=== PATIENT | male | born 1965 | race Two or more races ===

== ENCOUNTER 2022-08-21 20:02 | Inpatient (IN) | payer OTHER ==
[2022-08-21 20:56] VITALS: BMI 21.9
[2022-08-21] MEDS ORDERED: MAGNESIUM HYDROX 2400MG/30ML ORAL SUSPENSION 30 ML CUP PO PRN (21:48)
[2022-08-21] MEDS ORDERED: DICYCLOMINE HCL 10 MG CAPSULE PO PRN (21:48)
[2022-08-21] MEDS ORDERED: LOPERAMIDE HCL 2 MG CAPSULE PO PRN (21:48)
[2022-08-21] MEDS ORDERED: ONDANSETRON *ODT* 4 MG TABLET SL PRN (21:48)
[2022-08-21] MEDS ORDERED: BISMUTH SUBSALICYLATE 524 MG/30 ML PO PRN (21:48)
[2022-08-21] MEDS ORDERED: METHOCARBAMOL 500 MG TABLET PO PRN (21:48)
[2022-08-21] MEDS ORDERED: POLYETHYLENE GLYCOL (HEALTHYLAX) 3350 17 GM PACKET PO PRN (21:48)
[2022-08-21] MEDS ORDERED: IBUPROFEN 600 MG TABLET (FP) PO PRN (21:48)
[2022-08-21] MEDS ORDERED: chlordiazePOXIDE HCL 25 MG CAPSULE PO PRN (21:48)
[2022-08-21] MEDS ORDERED: NALOXONE HCL (KLOXXADO) 8 MG SPRAY NS PRN (21:48)
[2022-08-21] MEDS ORDERED: BENZOCAINE/MENTHOL (CHLORASEPTIC ) LOZENGE MM PRN (21:48)
[2022-08-21] MEDS ORDERED: ACETAMINOPHEN 325 MG TABLET (FP) PO PRN ×2 (21:48)
[2022-08-21] MEDS ORDERED: IBUPROFEN 400 MG TABLET (FP) PO PRN (21:48)
[2022-08-21] MEDS ORDERED: MAG HYDROX/AL HYDROX/SIMETH 30 ML UNIT-DOSE CUP PO PRN (21:48)
[2022-08-21] MEDS: THIAMINE HCL 100 MG TABLET (FP) PO SCH (23:36)
[2022-08-21] MEDS: chlordiazePOXIDE HCL 25 MG CAPSULE PO SCH (23:36)
[2022-08-21] MEDS: MELATONIN 5 MG TABLETS PO SCH (23:46)
[2022-08-22] MEDS: chlordiazePOXIDE HCL 25 MG CAPSULE PO SCH ×4 (06:12→22:38)
[2022-08-22] MEDS ORDERED: PRENATAL VITAMINS W/ FOLIC ACID TABLET (FP) PO SCH (10:00)
[2022-08-22 11:28] LABS: HEMATOCRIT 32.3 % (35.4-49); MCH 35.6 pg (25.7-33.7); MEAN CELL VOLUME 104.7 fl (80-96); MEAN PLT VOLUME 10.3 fl (7.5-11.1); PLATELET COUNT 122 10^3/uL (134-434); RBC 3.09 M/mm3 (4.00-5.60); RDW 14.8 % (11.9-15.9); WHITE BLOOD COUNT 4.1 K/mm3 (4.0-10.0)
[2022-08-22 11:50] LABS: CALCIUM 9.1 mg/dL (8.5-10.1)
[2022-08-22 11:51] LABS: ALBUMIN 2.6 g/dl (3.4-5.0); BLOOD UREA NITROGEN 7.8 mg/dL (7-18)
[2022-08-22 11:54] LABS: CREATININE 0.5 mg/dL (0.55-1.3)
[2022-08-22 11:56] LABS: BILIRUBIN,TOTAL 1.6 mg/dL (0.2-1); TOT PROT 5.3 g/dl (6.4-8.2)
[2022-08-22] MEDS: THIAMINE HCL 100 MG TABLET (FP) PO SCH (22:37)
[2022-08-22] MEDS: MELATONIN 5 MG TABLETS PO SCH (22:37)
[2022-08-22 23:22] VITALS: RESP 18; TEMP 98.2
[2022-08-22 23:25] VITALS: BP 102/62; PULSE 119
[2022-08-23] MEDS ORDERED: chlordiazePOXIDE HCL 25 MG CAPSULE PO SCH (05:00)
[2022-08-24] MEDS ORDERED: chlordiazePOXIDE HCL 10 MG CAPSULE PO PRN
[2022-08-24] MEDS ORDERED: chlordiazePOXIDE HCL 10 MG CAPSULE PO SCH (05:00)
[2022-08-25] MEDS ORDERED: chlordiazePOXIDE HCL 10 MG CAPSULE PO SCH (05:00)
[2022-08-26] MEDS ORDERED: chlordiazePOXIDE HCL 10 MG CAPSULE PO ONE (05:00)
== END 2022-08-22 22:00 | disposition short-term general hospital (02) | DRG 775 ==
LOC: YASAS 20:02 → Y3N 22:04
PROVIDERS: ADMIT Allergy & Immunology; ATTEND Family Medicine
PROC: HZ2ZZZZ Detoxification Services for Substance Abuse Treatment (ICD-10-PCS; principal; 2022-08-21)
DX: F10.230 Alcohol dependence with withdrawal, uncomplicated (principal); Z87.891 Personal history of nicotine dependence; W19.XXXA Unspecified fall, initial encounter; Y93.9 Activity, unspecified; Y92.239 Unspecified place in hospital as the place of occurrence of the external cause
CPT/HCPCS: 36415; 80053; 85027; 86593; 86780; 93005; 93010; C9803-CS; U0003; U0005

== ENCOUNTER 2022-08-22 23:25 | Inpatient (IN) | payer OTHER ==
[2022-08-22 23:43] VITALS: BMI 20.5
[2022-08-23] MEDS ORDERED: LACTATED RINGERS SOLUTION 1000 ML INFUS.BAG IV ONE (00:38)
[2022-08-23] MEDS ORDERED: LORazepam 2 MG/ML SDV VIAL IVPUSH ONE ×2 (03:38→03:54)
[2022-08-23] MEDS ORDERED: FOLIC ACID INJECTION - 1 MG, THIAMINE HCL 100 MG, MULTIVIT INJECTION ADULT 10 ML in SOD... IVPB ONE ×2 (03:39→05:20)
[2022-08-23] MEDS ORDERED: chlordiazePOXIDE HCL 25 MG CAPSULE PO PRN (05:10)
[2022-08-23] MEDS ORDERED: FOLIC ACID 1 MG TABLET (FP) PO ONE (05:20)
[2022-08-23] MEDS ORDERED: LORazepam 2 MG/ML SDV VIAL IVPUSH PRN (05:30)
[2022-08-23] MEDS: SODIUM CHLORIDE 1,000 ML IV SCH (05:45)
[2022-08-23] MEDS ORDERED: chlordiazePOXIDE 5 MG CAPSULE ONE (05:48)
[2022-08-23] MEDS ORDERED: KCL 10 MEQ IVPB 10 MEQ/100 ML INFUS.BAG IVPB ONE ×3 (05:48→09:49)
[2022-08-23] MEDS: KCL 10 MEQ IVPB 10 MEQ/100 ML INFUS.BAG IVPB SCH ×3 (05:49→10:03)
[2022-08-23] MEDS: chlordiazePOXIDE HCL 25 MG CAPSULE PO SCH ×4 (05:49→22:01)
[2022-08-23] MEDS: THIAMINE HCL 200 MG/2 ML VIAL IVPB SCH ×3 (06:03→22:00)
[2022-08-23 08:05] LABS: ALBUMIN 2.6 g/dl (3.4-5.0); BLOOD UREA NITROGEN 5.7 mg/dL (7-18); CALCIUM 8.6 mg/dL (8.5-10.1); MAGNESIUM 1.6 mg/dL (1.8-2.4)
[2022-08-23 08:08] LABS: CREATININE 0.4 mg/dL (0.55-1.3); PHOSPHOROUS 2.6 mg/dL (2.5-4.9)
[2022-08-23 08:10] LABS: TOT PROT 5.3 g/dl (6.4-8.2)
[2022-08-23 08:23] LABS: BASO % 1.1 % (0-2.0); EOS % 2.2 % (0-4.5); HEMATOCRIT 33.1 % (35.4-49); HEMOGLOBIN 11.2 GM/dL (11.7-16.9); LYMPH % 31.2 % (8-40); MCH 35.4 pg (25.7-33.7); MCHC 33.9 g/dl (32.0-35.9); MEAN CELL VOLUME 104.5 fl (80-96); MEAN PLT VOLUME 10.5 fl (7.5-11.1); MONO % 15.4 % (3.8-10.2); NEUT % 50.1 % (42.8-82.8); PLATELET COUNT 115 10^3/uL (134-434); RBC 3.17 M/mm3 (4.00-5.60); RDW 14.5 % (11.9-15.9); WHITE BLOOD COUNT 4.2 K/mm3 (4.0-10.0)
[2022-08-23 09:32] LABS: PLATELET ESTIMATE SLT DECREASE
[2022-08-23 09:46] LABS: COCAINE, UR NEGATIVE (NEGATIVE); METHADONE, UR NEGATIVE (NEGATIVE); PHENCYCLIDINE,URINE NEGATIVE (NEGATIVE); URINE AMPHETAMINES NEGATIVE (NEGATIVE)
[2022-08-23 09:47] LABS: OPIATES, URI NEGATIVE (NEGATIVE); URINE BARBITURATES NEGATIVE (NEGATIVE); URINE BENZODIAZEPINES POSITIVE (NEGATIVE)
[2022-08-23] MEDS ORDERED: ENOXAPARIN NA (PORCINE) 40 MG/0.4 ML DISP.SYRIN SQ ONE (10:04)
[2022-08-23] MEDS: ENOXAPARIN NA (PORCINE) 40 MG/0.4 ML DISP.SYRIN SQ SCH (10:08)
[2022-08-23] MEDS ORDERED: chlordiazePOXIDE HCL 25 MG CAPSULE ONE ×3 (11:39→21:57)
[2022-08-23] MEDS ORDERED: THIAMINE HCL 200 MG/2 ML VIAL ONE ×2 (14:19→21:29)
[2022-08-23] MEDS ORDERED: MAGNESIUM 1GM/D5W 100ML - 100 ML IVPB IVPB ONE (15:17)
[2022-08-23] MEDS ORDERED: POTASSIUM CHLORIDE TABS 20 MEQ TABLET.ER (FP) PO ONE (15:36)
[2022-08-23] MEDS ORDERED: MAGNESIUM 1GM/D5W - 1 GM/100 ML IVPB IVPB ONE (15:37)
[2022-08-23] MEDS: POTASSIUM CHLORIDE TABS 20 MEQ TABLET.ER (FP) PO SCH (15:45)
[2022-08-23] MEDS ORDERED: traZODone HCL 50 MG TABLET (FP) PO SCH (22:00)
[2022-08-23] MEDS: traZODone HCL 100 MG TABLET (FP) PO SCH (22:00)
[2022-08-24] MEDS: chlordiazePOXIDE HCL 25 MG CAPSULE PO SCH ×4 (05:33→22:26)
[2022-08-24] MEDS: SODIUM CHLORIDE 1,000 ML IV SCH (05:34)
[2022-08-24] MEDS: THIAMINE HCL 200 MG/2 ML VIAL IVPB SCH ×3 (05:34→22:05)
[2022-08-24] MEDS: POTASSIUM CHLORIDE TABS 20 MEQ TABLET.ER (FP) PO SCH (10:24)
[2022-08-24 11:11] LABS: BASO % 0.9 % (0-2.0); EOS % 1.6 % (0-4.5); HEMATOCRIT 33.5 % (35.4-49); HEMOGLOBIN 11.1 GM/dL (11.7-16.9); LYMPH % 17.2 % (8-40); MCH 35.1 pg (25.7-33.7); MCHC 33.1 g/dl (32.0-35.9); MEAN CELL VOLUME 105.8 fl (80-96); MEAN PLT VOLUME 9.9 fl (7.5-11.1); MONO % 14.4 % (3.8-10.2); NEUT % 65.9 % (42.8-82.8); PLATELET COUNT 122 10^3/uL (134-434); RBC 3.16 M/mm3 (4.00-5.60); RDW 14.5 % (11.9-15.9); WHITE BLOOD COUNT 4.3 K/mm3 (4.0-10.0)
[2022-08-24] MEDS: ENOXAPARIN NA (PORCINE) 40 MG/0.4 ML DISP.SYRIN SQ SCH (11:23)
[2022-08-24 11:35] LABS: ANISOCYTOSIS 1+; MACROCYTOSIS 1+; PLATELET ESTIMATE DECREASED
[2022-08-24 11:39] LABS: BLOOD UREA NITROGEN 3.3 mg/dL (7-18); CALCIUM 8.6 mg/dL (8.5-10.1); MAGNESIUM 2.1 mg/dL (1.8-2.4)
[2022-08-24 11:43] LABS: CREATININE 0.5 mg/dL (0.55-1.3)
[2022-08-24] MEDS: traZODone HCL 100 MG TABLET (FP) PO SCH (22:05)
[2022-08-24 23:32] LABS: URINE APPEARANCE CLOUDY; URINE BILIRUBIN NEGATIVE (NEGATIVE); URINE COLOR YELLOW; URINE GLUCOSE (UA) NEGATIVE (NEGATIVE); URINE KETONE 1+ (NEGATIVE); URINE LEUK ESTERASE NEGATIVE (NEGATIVE); URINE NITRITE NEGATIVE (NEGATIVE); URINE PROTEIN NEGATIVE (NEGATIVE)
[2022-08-25] MEDS ORDERED: chlordiazePOXIDE HCL 10 MG CAPSULE PO PRN
[2022-08-25] MEDS: chlordiazePOXIDE HCL 10 MG CAPSULE PO SCH ×4 (05:06→22:04)
[2022-08-25] MEDS: THIAMINE HCL 200 MG/2 ML VIAL IVPB SCH ×2 (05:07→11:00)
[2022-08-25] MEDS: SODIUM CHLORIDE 1,000 ML IV SCH ×2 (05:07→06:00)
[2022-08-25 08:30] LABS: BASO % 0.9 % (0-2.0); HEMATOCRIT 32.6 % (35.4-49); HEMOGLOBIN 10.8 GM/dL (11.7-16.9); MCH 35.3 pg (25.7-33.7); MCHC 33.2 g/dl (32.0-35.9); MEAN CELL VOLUME 106.4 fl (80-96); MEAN PLT VOLUME 10.6 fl (7.5-11.1); MONO % 13.8 % (3.8-10.2); NEUT % 66.3 % (42.8-82.8); PLATELET COUNT 125 10^3/uL (134-434); RBC 3.07 M/mm3 (4.00-5.60); RDW 14.8 % (11.9-15.9); WHITE BLOOD COUNT 6.5 K/mm3 (4.0-10.0)
[2022-08-25 09:17] LABS: ALBUMIN 2.6 g/dl (3.4-5.0); BLOOD UREA NITROGEN 3.1 mg/dL (7-18); CALCIUM 8.2 mg/dL (8.5-10.1); MAGNESIUM 2.2 mg/dL (1.8-2.4)
[2022-08-25 09:18] LABS: CREATININE 0.5 mg/dL (0.55-1.3); TOT PROT 5.3 g/dl (6.4-8.2)
[2022-08-25 09:19] LABS: BILIRUBIN,TOTAL 0.8 mg/dL (0.2-1)
[2022-08-25] MEDS: ENOXAPARIN NA (PORCINE) 40 MG/0.4 ML DISP.SYRIN SQ SCH (10:52)
[2022-08-25] MEDS: POTASSIUM CHLORIDE TABS 20 MEQ TABLET.ER (FP) PO SCH (10:52)
[2022-08-25] MEDS ORDERED: THIAMINE HCL 200 MG/2 ML VIAL IM ONE ×2 (15:15→22:00)
[2022-08-25] MEDS: AMPICILLIN NA/SULBACTAM NA 1.5 GM in SODIUM CHLORIDE 100 ML IVPB SCH ×2 (16:15→19:23)
[2022-08-25] MEDS: traZODone HCL 100 MG TABLET (FP) PO SCH (22:08)
[2022-08-26] MEDS: AMPICILLIN NA/SULBACTAM NA 1.5 GM in SODIUM CHLORIDE 100 ML IVPB SCH ×2 (01:56→10:41)
[2022-08-26] MEDS: SODIUM CHLORIDE 1,000 ML IV SCH ×2 (01:58→05:31)
[2022-08-26] MEDS: chlordiazePOXIDE HCL 10 MG CAPSULE PO SCH ×2 (05:31→17:27)
[2022-08-26] MEDS: THIAMINE HCL 200 MG/2 ML VIAL IVPB SCH ×3 (05:31→21:27)
[2022-08-26] MEDS ORDERED: ERYTHROMYCIN 0.5% OPHTHALMIC OINTMENT 3.5 GM TUBE OU STA (08:31)
[2022-08-26 08:57] LABS: BASO % 0.4 % (0-2.0); HEMATOCRIT 31.9 % (35.4-49); HEMOGLOBIN 10.6 GM/dL (11.7-16.9); LYMPH % 15.3 % (8-40); MCH 35.1 pg (25.7-33.7); MCHC 33.3 g/dl (32.0-35.9); MEAN CELL VOLUME 105.4 fl (80-96); MEAN PLT VOLUME 9.3 fl (7.5-11.1); MONO % 12.7 % (3.8-10.2); NEUT % 70.6 % (42.8-82.8); PLATELET COUNT 133 10^3/uL (134-434); RBC 3.03 M/mm3 (4.00-5.60); RDW 14.8 % (11.9-15.9); WHITE BLOOD COUNT 7.9 K/mm3 (4.0-10.0)
[2022-08-26 09:11] LABS: CALCIUM 8.5 mg/dL (8.5-10.1)
[2022-08-26 09:13] LABS: ALBUMIN 2.4 g/dl (3.4-5.0); BLOOD UREA NITROGEN 3.6 mg/dL (7-18); MAGNESIUM 2.1 mg/dL (1.8-2.4)
[2022-08-26 09:15] LABS: CREATININE 0.5 mg/dL (0.55-1.3); PHOSPHOROUS 4.2 mg/dL (2.5-4.9)
[2022-08-26 09:17] LABS: BILIRUBIN,TOTAL 1.2 mg/dL (0.2-1); TOT PROT 5.1 g/dl (6.4-8.2)
[2022-08-26] MEDS: ENOXAPARIN NA (PORCINE) 40 MG/0.4 ML DISP.SYRIN SQ SCH (10:41)
[2022-08-26] MEDS: POTASSIUM CHLORIDE TABS 20 MEQ TABLET.ER (FP) PO SCH (10:42)
[2022-08-26] MEDS ORDERED: THIAMINE HCL 200 MG/2 ML VIAL IVPB ONE (14:25)
[2022-08-26] MEDS: CEFTRIAXONE 1 GM in DEXTROSE 5%-WATER - 50 ML IVPB SCH (14:52)
[2022-08-26] MEDS: metroNIDAZOLE 250 MG TABLET PO SCH ×2 (17:29→21:27)
[2022-08-26] MEDS: traZODone HCL 100 MG TABLET (FP) PO SCH (21:27)
[2022-08-26] MEDS: LORazepam 2 MG/ML SDV VIAL IVPUSH PRN (21:44)
[2022-08-27] MEDS ORDERED: chlordiazePOXIDE HCL 10 MG CAPSULE PO ONE (05:00)
[2022-08-27] MEDS: metroNIDAZOLE 250 MG TABLET PO SCH ×3 (06:06→21:04)
[2022-08-27] MEDS: THIAMINE HCL 200 MG/2 ML VIAL IVPB SCH ×3 (06:22→21:15)
[2022-08-27] MEDS: LORazepam 2 MG/ML SDV VIAL IVPUSH PRN (06:30)
[2022-08-27 08:49] LABS: HEMATOCRIT 31.3 % (35.4-49); HEMOGLOBIN 10.4 GM/dL (11.7-16.9); MCH 35.3 pg (25.7-33.7); MCHC 33.3 g/dl (32.0-35.9); MEAN CELL VOLUME 106.1 fl (80-96); MEAN PLT VOLUME 9.8 fl (7.5-11.1); PLATELET COUNT 174 10^3/uL (134-434); RBC 2.95 M/mm3 (4.00-5.60); RDW 14.5 % (11.9-15.9); WHITE BLOOD COUNT 5.2 K/mm3 (4.0-10.0)
[2022-08-27 09:05] LABS: CALCIUM 8.6 mg/dL (8.5-10.1)
[2022-08-27 09:06] LABS: ALBUMIN 2.7 g/dl (3.4-5.0); BLOOD UREA NITROGEN 5.7 mg/dL (7-18)
[2022-08-27 09:09] LABS: CREATININE 0.5 mg/dL (0.55-1.3)
[2022-08-27 09:10] LABS: TOT PROT 5.4 g/dl (6.4-8.2)
[2022-08-27 09:11] LABS: BILIRUBIN,TOTAL 1.2 mg/dL (0.2-1)
[2022-08-27] MEDS: POTASSIUM CHLORIDE TABS 20 MEQ TABLET.ER (FP) PO SCH (09:59)
[2022-08-27] MEDS: ENOXAPARIN NA (PORCINE) 40 MG/0.4 ML DISP.SYRIN SQ SCH (10:00)
[2022-08-27] MEDS: CEFTRIAXONE 1 GM in DEXTROSE 5%-WATER - 50 ML IVPB SCH (10:00)
[2022-08-27] MEDS: chlordiazePOXIDE HCL 25 MG CAPSULE PO SCH (21:04)
[2022-08-27] MEDS: traZODone HCL 100 MG TABLET (FP) PO SCH (21:07)
[2022-08-28] MEDS: LORazepam 2 MG/ML SDV VIAL IVPUSH PRN (01:24)
[2022-08-28] MEDS: metroNIDAZOLE 250 MG TABLET PO SCH ×2 (05:17→14:17)
[2022-08-28] MEDS: THIAMINE HCL 200 MG/2 ML VIAL IVPB SCH ×3 (05:17→21:18)
[2022-08-28 08:13] LABS: HEMATOCRIT 31.9 % (35.4-49); HEMOGLOBIN 10.8 GM/dL (11.7-16.9); MCH 35.7 pg (25.7-33.7); MCHC 33.8 g/dl (32.0-35.9); MEAN CELL VOLUME 105.5 fl (80-96); PLATELET COUNT 245 10^3/uL (134-434); RBC 3.02 M/mm3 (4.00-5.60); RDW 14.5 % (11.9-15.9); WHITE BLOOD COUNT 4.2 K/mm3 (4.0-10.0)
[2022-08-28 08:40] LABS: ALBUMIN 2.8 g/dl (3.4-5.0); BLOOD UREA NITROGEN 5.6 mg/dL (7-18)
[2022-08-28 08:41] LABS: ANISOCYTOSIS 2+; CREATININE 0.5 mg/dL (0.55-1.3); MACROCYTOSIS 2+
[2022-08-28 08:43] LABS: BILIRUBIN,TOTAL 1.1 mg/dL (0.2-1); TOT PROT 5.7 g/dl (6.4-8.2)
[2022-08-28] MEDS: POTASSIUM CHLORIDE TABS 20 MEQ TABLET.ER (FP) PO SCH (10:07)
[2022-08-28] MEDS: ENOXAPARIN NA (PORCINE) 40 MG/0.4 ML DISP.SYRIN SQ SCH (10:08)
[2022-08-28] MEDS: chlordiazePOXIDE HCL 25 MG CAPSULE PO SCH ×2 (10:08→21:16)
[2022-08-28] MEDS: CEFTRIAXONE 1 GM in DEXTROSE 5%-WATER - 50 ML IVPB SCH (10:09)
[2022-08-28 11:54] LABS: HIV INTERPRETATION NEGATIVE (NEGATIVE)
[2022-08-28] MEDS ORDERED: PENICILLIN G BENZATHINE 2,400,000 UNIT/4 ML PFS IM ONE (14:41)
[2022-08-28] MEDS: PIPERACILLIN/TAZOB 3.375 GM 3.375 GM in DEXTROSE 5%-WATER - 50 ML IVPB SCH (17:35)
[2022-08-28] MEDS: traZODone HCL 100 MG TABLET (FP) PO SCH (21:17)
[2022-08-29] MEDS: PIPERACILLIN/TAZOB 3.375 GM 3.375 GM in DEXTROSE 5%-WATER - 50 ML IVPB SCH ×2 (01:30→10:13)
[2022-08-29] MEDS: THIAMINE HCL 200 MG/2 ML VIAL IVPB SCH ×3 (05:08→21:55)
[2022-08-29] MEDS: ENOXAPARIN NA (PORCINE) 40 MG/0.4 ML DISP.SYRIN SQ SCH (10:12)
[2022-08-29] MEDS: chlordiazePOXIDE HCL 25 MG CAPSULE PO SCH ×2 (10:12→21:54)
[2022-08-29 10:14] LABS: BASO % 2.1 % (0-2.0); EOS % 3.2 % (0-4.5); HEMATOCRIT 32.3 % (35.4-49); HEMOGLOBIN 10.9 GM/dL (11.7-16.9); MCH 35.8 pg (25.7-33.7); MCHC 33.8 g/dl (32.0-35.9); MEAN PLT VOLUME 9.1 fl (7.5-11.1); MONO % 18.2 % (3.8-10.2); NEUT % 51.5 % (42.8-82.8); PLATELET COUNT 327 10^3/uL (134-434); RBC 3.04 M/mm3 (4.00-5.60); RDW 14.5 % (11.9-15.9); WHITE BLOOD COUNT 4.8 K/mm3 (4.0-10.0)
[2022-08-29 10:44] LABS: CALCIUM 8.9 mg/dL (8.5-10.1)
[2022-08-29 10:45] LABS: ALBUMIN 2.8 g/dl (3.4-5.0); BLOOD UREA NITROGEN 7.4 mg/dL (7-18); MAGNESIUM 2.5 mg/dL (1.8-2.4)
[2022-08-29 10:48] LABS: CREATININE 0.7 mg/dL (0.55-1.3)
[2022-08-29 10:49] LABS: BILIRUBIN,TOTAL 0.8 mg/dL (0.2-1); TOT PROT 5.7 g/dl (6.4-8.2)
[2022-08-29] MEDS: AMOX TR/POT CLAV 875MG/125MG TABLETS (FP) PO SCH (18:20)
[2022-08-29] MEDS: traZODone HCL 100 MG TABLET (FP) PO SCH (21:54)
[2022-08-30] MEDS: LORazepam 2 MG/ML SDV VIAL IVPUSH PRN (04:00)
[2022-08-30] MEDS: THIAMINE HCL 200 MG/2 ML VIAL IVPB SCH ×3 (06:13→21:18)
[2022-08-30 07:47] LABS: HEMATOCRIT 31.8 % (35.4-49); HEMOGLOBIN 10.6 GM/dL (11.7-16.9); MCH 34.9 pg (25.7-33.7); MCHC 33.2 g/dl (32.0-35.9); MEAN CELL VOLUME 105.3 fl (80-96); MEAN PLT VOLUME 8.9 fl (7.5-11.1); PLATELET COUNT 328 10^3/uL (134-434); RBC 3.02 M/mm3 (4.00-5.60); WHITE BLOOD COUNT 5.3 K/mm3 (4.0-10.0)
[2022-08-30 08:28] LABS: ALBUMIN 2.7 g/dl (3.4-5.0); BLOOD UREA NITROGEN 6.8 mg/dL (7-18)
[2022-08-30 08:29] LABS: CALCIUM 8.6 mg/dL (8.5-10.1)
[2022-08-30 08:30] LABS: MAGNESIUM 2.4 mg/dL (1.8-2.4)
[2022-08-30 08:31] LABS: CREATININE 0.6 mg/dL (0.55-1.3); PHOSPHOROUS 4.1 mg/dL (2.5-4.9)
[2022-08-30 08:32] LABS: BILIRUBIN,TOTAL 0.8 mg/dL (0.2-1)
[2022-08-30 08:33] LABS: TOT PROT 5.4 g/dl (6.4-8.2)
[2022-08-30 08:51] LABS: ANISOCYTOSIS 2+; MACROCYTOSIS 2+
[2022-08-30] MEDS: ENOXAPARIN NA (PORCINE) 40 MG/0.4 ML DISP.SYRIN SQ SCH (10:07)
[2022-08-30] MEDS: AMOX TR/POT CLAV 875MG/125MG TABLETS (FP) PO SCH ×2 (10:08→16:57)
[2022-08-30] MEDS: chlordiazePOXIDE HCL 25 MG CAPSULE PO SCH ×2 (10:09→21:17)
[2022-08-30] MEDS: traZODone HCL 100 MG TABLET (FP) PO SCH (21:18)
[2022-08-31 09:38] LABS: BASO % 2.4 % (0-2.0); EOS % 3.4 % (0-4.5); HEMATOCRIT 30.4 % (35.4-49); HEMOGLOBIN 10.4 GM/dL (11.7-16.9); MCH 36.3 pg (25.7-33.7); MCHC 34.4 g/dl (32.0-35.9); MEAN CELL VOLUME 105.7 fl (80-96); MEAN PLT VOLUME 8.2 fl (7.5-11.1); MONO % 17.7 % (3.8-10.2); NEUT % 43.5 % (42.8-82.8); PLATELET COUNT 366 10^3/uL (134-434); RBC 2.88 M/mm3 (4.00-5.60); RDW 14.6 % (11.9-15.9); WHITE BLOOD COUNT 4.3 K/mm3 (4.0-10.0)
[2022-08-31] MEDS: LORazepam 2 MG/ML SDV VIAL IVPUSH PRN (09:48)
[2022-08-31] MEDS: ENOXAPARIN NA (PORCINE) 40 MG/0.4 ML DISP.SYRIN SQ SCH (09:52)
[2022-08-31] MEDS: AMOX TR/POT CLAV 875MG/125MG TABLETS (FP) PO SCH ×2 (09:52→19:14)
[2022-08-31 10:02] LABS: ALBUMIN 2.8 g/dl (3.4-5.0); CALCIUM 8.8 mg/dL (8.5-10.1); MAGNESIUM 2.4 mg/dL (1.8-2.4)
[2022-08-31 10:05] LABS: CREATININE 0.5 mg/dL (0.55-1.3); PHOSPHOROUS 4.5 mg/dL (2.5-4.9)
[2022-08-31 10:06] LABS: BILIRUBIN,TOTAL 0.6 mg/dL (0.2-1); TOT PROT 5.7 g/dl (6.4-8.2)
[2022-08-31] MEDS: chlordiazePOXIDE HCL 25 MG CAPSULE PO SCH (10:18)
[2022-08-31] MEDS ORDERED: traZODone HCL 50 MG TABLET (FP) ONE (21:11)
[2022-08-31] MEDS: traZODone HCL 100 MG TABLET (FP) PO SCH (22:09)
[2022-09-01] MEDS ORDERED: LORazepam 2 MG/ML SDV VIAL IVPUSH ONE ×2 (05:21→23:17)
[2022-09-01] MEDS: AMOX TR/POT CLAV 875MG/125MG TABLETS (FP) PO SCH ×2 (08:35→17:53)
[2022-09-01] MEDS: ENOXAPARIN NA (PORCINE) 40 MG/0.4 ML DISP.SYRIN SQ SCH (09:48)
[2022-09-01] MEDS ORDERED: chlordiazePOXIDE HCL 25 MG CAPSULE PO ONE (10:00)
[2022-09-01 10:30] LABS: EOS % 2.9 % (0-4.5); HEMATOCRIT 30.7 % (35.4-49); HEMOGLOBIN 10.4 GM/dL (11.7-16.9); LYMPH % 27.6 % (8-40); MCH 35.6 pg (25.7-33.7); MEAN PLT VOLUME 8.8 fl (7.5-11.1); MONO % 12.9 % (3.8-10.2); NEUT % 53.6 % (42.8-82.8); PLATELET COUNT 425 10^3/uL (134-434); RBC 2.93 M/mm3 (4.00-5.60); RDW 14.5 % (11.9-15.9); WHITE BLOOD COUNT 5.1 K/mm3 (4.0-10.0)
[2022-09-01 10:54] LABS: ALBUMIN 2.6 g/dl (3.4-5.0); CALCIUM 8.8 mg/dL (8.5-10.1); MAGNESIUM 2.2 mg/dL (1.8-2.4)
[2022-09-01 10:57] LABS: PHOSPHOROUS 4.3 mg/dL (2.5-4.9)
[2022-09-01 10:58] LABS: CREATININE 0.6 mg/dL (0.55-1.3); TOT PROT 5.4 g/dl (6.4-8.2)
[2022-09-01 11:00] LABS: BILIRUBIN,TOTAL 0.6 mg/dL (0.2-1)
[2022-09-01] MEDS ORDERED: traZODone HCL 50 MG TABLET (FP) ONE (21:03)
[2022-09-01] MEDS: traZODone HCL 100 MG TABLET (FP) PO SCH (21:04)
[2022-09-01] MEDS: QUEtiapine FUMARATE 25 MG TABLET PO SCH (21:05)
[2022-09-02] MEDS: AMOX TR/POT CLAV 875MG/125MG TABLETS (FP) PO SCH ×2 (08:50→17:24)
[2022-09-02] MEDS: ENOXAPARIN NA (PORCINE) 40 MG/0.4 ML DISP.SYRIN SQ SCH (09:18)
[2022-09-02] MEDS: QUEtiapine FUMARATE 25 MG TABLET PO SCH (22:09)
[2022-09-02] MEDS: traZODone HCL 100 MG TABLET (FP) PO SCH (22:10)
[2022-09-03] MEDS ORDERED: LORazepam 1 MG TABLET PO ONE ×2 (04:45→23:32)
[2022-09-03] MEDS: AMOX TR/POT CLAV 875MG/125MG TABLETS (FP) PO SCH ×2 (07:48→17:11)
[2022-09-03] MEDS: ENOXAPARIN NA (PORCINE) 40 MG/0.4 ML DISP.SYRIN SQ SCH (09:20)
[2022-09-03] MEDS ORDERED: traZODone HCL 50 MG TABLET (FP) ONE (21:14)
[2022-09-03] MEDS: traZODone HCL 100 MG TABLET (FP) PO SCH (21:28)
[2022-09-03] MEDS: QUEtiapine FUMARATE 25 MG TABLET PO SCH (21:29)
[2022-09-04] MEDS: AMOX TR/POT CLAV 875MG/125MG TABLETS (FP) PO SCH ×2 (08:34→17:28)
[2022-09-04] MEDS: MULTIVIT-MINERALS ORAL LIQUID PO SCH (10:11)
[2022-09-04] MEDS: ENOXAPARIN NA (PORCINE) 40 MG/0.4 ML DISP.SYRIN SQ SCH (10:12)
[2022-09-04] MEDS: THIAMINE HCL 100 MG TABLET (FP) PO SCH (10:12)
[2022-09-04] MEDS: FOLIC ACID 1 MG TABLET (FP) PO SCH (10:12)
[2022-09-04 10:15] LABS: HEMATOCRIT 34.2 % (35.4-49); HEMOGLOBIN 11.4 GM/dL (11.7-16.9); MCH 35.2 pg (25.7-33.7); MCHC 33.3 g/dl (32.0-35.9); MEAN CELL VOLUME 105.5 fl (80-96); MEAN PLT VOLUME 8.5 fl (7.5-11.1); PLATELET COUNT 533 10^3/uL (134-434); RBC 3.24 M/mm3 (4.00-5.60); RDW 14.2 % (11.9-15.9)
[2022-09-04 10:29] LABS: CALCIUM 9.1 mg/dL (8.5-10.1)
[2022-09-04 10:30] LABS: ALBUMIN 3.1 g/dl (3.4-5.0); BLOOD UREA NITROGEN 6.4 mg/dL (7-18); MAGNESIUM 2.2 mg/dL (1.8-2.4)
[2022-09-04 10:32] LABS: CREATININE 0.5 mg/dL (0.55-1.3)
[2022-09-04 10:33] LABS: PHOSPHOROUS 4.4 mg/dL (2.5-4.9)
[2022-09-04 10:34] LABS: BILIRUBIN,TOTAL 0.6 mg/dL (0.2-1); TOT PROT 6.1 g/dl (6.4-8.2)
[2022-09-04] MEDS ORDERED: PENICILLIN G BENZATHINE 2,400,000 UNIT/4 ML PFS IM ONE (12:00)
[2022-09-04] MEDS: propRANOLol HCL 10 MG TABLET PO SCH ×2 (13:59→21:56)
[2022-09-04] MEDS ORDERED: traZODone HCL 50 MG TABLET (FP) ONE (21:43)
[2022-09-04] MEDS: QUEtiapine FUMARATE 25 MG TABLET PO SCH (21:56)
[2022-09-04] MEDS: traZODone HCL 100 MG TABLET (FP) PO SCH (21:56)
[2022-09-05] MEDS: propRANOLol HCL 10 MG TABLET PO SCH ×3 (06:01→21:51)
[2022-09-05] MEDS: AMOX TR/POT CLAV 875MG/125MG TABLETS (FP) PO SCH (08:10)
[2022-09-05] MEDS: FOLIC ACID 1 MG TABLET (FP) PO SCH (10:02)
[2022-09-05] MEDS: THIAMINE HCL 100 MG TABLET (FP) PO SCH (10:02)
[2022-09-05] MEDS: MULTIVIT-MINERALS ORAL LIQUID PO SCH (10:02)
[2022-09-05] MEDS: ENOXAPARIN NA (PORCINE) 40 MG/0.4 ML DISP.SYRIN SQ SCH (10:02)
[2022-09-05 13:56] VITALS: RESP 18
[2022-09-05] MEDS ORDERED: traZODone HCL 50 MG TABLET (FP) ONE (21:36)
[2022-09-05] MEDS: QUEtiapine FUMARATE 25 MG TABLET PO SCH (21:51)
[2022-09-05] MEDS: traZODone HCL 100 MG TABLET (FP) PO SCH (21:52)
[2022-09-06 05:35] VITALS: BP 147/85; PULSE 111; TEMP 97.6
[2022-09-06] MEDS: propRANOLol HCL 10 MG TABLET PO SCH (05:53)
[2022-09-06] MEDS: THIAMINE HCL 100 MG TABLET (FP) PO SCH (10:33)
[2022-09-06] MEDS: ENOXAPARIN NA (PORCINE) 40 MG/0.4 ML DISP.SYRIN SQ SCH (10:34)
[2022-09-06] MEDS: FOLIC ACID 1 MG TABLET (FP) PO SCH (10:34)
[2022-09-06] MEDS: MULTIVIT-MINERALS ORAL LIQUID PO SCH (10:35)
== END 2022-09-06 11:33 | DRG 421 ==
LOC: JER 23:25 → JERBED 08-23 03:56 → OBSVTOIN 08-23 05:14 → J4S 08-23 22:41 → J7W 08-30 21:51
PROVIDERS: ADMIT Internal Medicine; ATTEND Internal Medicine
DX: E51.2 Wernicke's encephalopathy (principal); J69.0 Pneumonitis due to inhalation of food and vomit; G93.41 Metabolic encephalopathy; N39.0 Urinary tract infection, site not specified; F10.231 Alcohol dependence with withdrawal delirium; R26.0 Ataxic gait; A53.0 Latent syphilis, unspecified as early or late; D64.9 Anemia, unspecified; E83.42 Hypomagnesemia; E87.6 Hypokalemia; D69.6 Thrombocytopenia, unspecified; R16.0 Hepatomegaly, not elsewhere classified; R74.01 Elevation of levels of liver transaminase levels; K70.10 Alcoholic hepatitis without ascites
CPT/HCPCS: 0241U-QW; 36415; 70450-TC; 70551-TC; 71045-TC-FY; 71250-TC; 72125-TC; 73521-TC-FY; 76705-TC; 80048; 80053; 80307; 81003; 82140; 82607; 82746; 83735; 84100; 85025; 85027; 86593; 86780; 87040; 87086; 87186; 87389; 87522; 93005; 93010; 93306-TC; 97116-GP; 97161-GP; 99285-25; C9803-CS; G0378; U0003; U0005